=== PATIENT | female | born 1975 | race Native Hawaiian/Other Pacific Islander ===

== ENCOUNTER 2017-08-31 14:19 | Inpatient (IN) | payer OTHER ==
--- NOTE | 2017-08-31 14:59 | C.PDOC ---
History Of Present Illness 41 years old female with history of hypertension and D&C in May 2016 due to giving presents to the ED complaining of intermittent abdominal pain for 2 months. Patient reports experiencing sever pain to the left lower quadrant yesterday and today. She admits having flu-like symptoms 2 weeks ago where she had bodyache, cough, cold, loose stool and maximum fever of 101 degree for 10 days. Patient reports she has been in [facility] on July 10 for the same reason where an US was ordered and was found unremarkable. 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 Patient was also treated recently for UTI but symptoms persisted. She denies any nausea, chills, shortness of breath or chest pain. PMD: Sergio Payton Time Seen by Provider: 08/31/17 14:40 Chief Complaint (Nursing): Fever History Per: Patient History/Exam Limitations: no limitations Onset/Duration Of Symptoms: Intermittent Episodes, Worse Since (yesterday) Past Medical History Reviewed: Historical Data, Nursing Documentation, Vital Signs Vital Signs: Last Vital Signs Temp 98.5 F 08/31/17 14:30 Pulse 89 08/31/17 14:30 Resp 20 08/31/17 14:30 BP 119/80 08/31/17 14:30 Pulse Ox 98 08/31/17 16:34 - Medical History PMH: HTN Other Surgeries: D&C Family History: States: Unknown Family Hx - Social History Hx Alcohol Use: No Hx Substance Use: No - Immunization History Hx Tetanus Toxoid Vaccination: No Hx Influenza Vaccination: Yes Hx Pneumococcal Vaccination: No Review Of Systems Except As Marked, All Systems Reviewed And Found Negative. Constitutional: Negative for: Chills Cardiovascular: Negative for: Chest Pain Respiratory: Negative for: Shortness of Breath Gastrointestinal: Positive for: Abdominal Pain (Diffused) Physical Exam - Physical Exam Appears: Non-toxic, No Acute Distress Skin: Normal Color Oral Mucosa: Moist Tongue: Normal Appearing Throat: Normal Respiratory: Normal Breath Sounds, No Wheezing Gastrointestinal/Abdominal: Tenderness (diffused but mostly to the pelvic area) Neurological/Psych: Oriented x3 ED Course And Treatment - Laboratory Results Result Diagrams: 08/31/17 15:34 08/31/17 15:34 O2 Sat by Pulse Oximetry: 98 (RA) Pulse Ox Interpretation: Normal Medical Decision Making Medical Decision Making: Time: [address] Payton who recommends admission of patient. Recommends Inder or Karl Spoke with Dr. Loving, recommends service. Admited to Dr. Barajas. Pending call back. Spoke with Dr. Heidi flores, they states Dr. Barajas i has been informed of admission. . Disposition Discussed With Dr.: Sergio Payton Doctor Will See Patient In The: Hospital Counseled Patient/Family Regarding: Studies Performed - Disposition Disposition: HOSPITALIZED Disposition Time: 15:08 Condition: GUARDED - Clinical Impression Clinical Impression: Fever of unknown origin (FUO) - Scribe Statement The provider has reviewed the documentation as recorded by the Scribe (Yolette Shipman)
[2017-08-31 15:38] LABS: VENOUS BLOOD GAS BASE EXCESS -1.1 mmol/L (0.0-2.0); VENOUS BLOOD GAS PCO2 48 mmHg (40-60); VENOUS BLOOD GAS PO2 31 mm/Hg (30-55); VENOUS BLOOD PH 7.33 (7.32-7.43)
[2017-08-31 15:39] LABS: BASO % 0.6 % (0.0-2.0); EOS # 0.3 K/uL (0.0-0.7); EOS % 3.9 % (0.0-4.0); HEMOGLOBIN 13.5 g/dL (11.0-16.0); LYMPH # 2.4 K/uL (1.0-4.3); LYMPH % 31.1 % (20.0-40.0); MEAN CELL VOLUME 89.6 fL (81.0-99.0); MEAN CORPUSCULAR HGB CONC 34.6 g/dL (33.0-37.0); MEAN PLATELET VOLUME 9.2 fL (7.2-11.7); MONO # 0.4 K/uL (0.0-0.8); NEUT # 4.6 K/uL (1.8-7.0); NEUT % 59.4 % (50.0-75.0); NRBC % 0.1 % (0.0-2.0); RBC 4.37 Mil/uL (3.80-5.20); RED CELL DISTRIBUTION WIDTH 12.5 % (11.5-14.5); WHITE BLOOD COUNT 7.8 K/uL (4.8-10.8)
[2017-08-31 15:50] LABS: PROTHROMBIN TIME 11.4 SECONDS (9.7-12.2)
[2017-08-31 15:54] LABS: ALB/GLOB RATIO 1.2 (1.0-2.1); ALBUMIN 4.1 g/dL (3.5-5.0); ALT/SGPT 59 U/L (9-52); AST/SGOT 38 U/L (14-36); BLOOD UREA NITROGEN 15 mg/dL (7-17); CALCIUM 9.3 mg/dl (8.6-10.4); GFR AFRICAN-AMERICAN > 60; GFR NON-AFRICAN AMERICAN 55
[2017-08-31 17:18] LABS: SQUAMOUS EPITHIAL < 1 /hpf (0-5); URINE BACTERIA RARE (<OCC); URINE BILIRUBIN NEGATIVE (NEGATIVE); URINE BLOOD NEGATIVE (NEGATIVE); URINE CLARITY Clear (Clear); URINE COLOR Straw (YELLOW); URINE GLUCOSE (UA) NORMAL (Normal); URINE LEUKOCYTE ESTERASE NEG Leu/uL (Negative); URINE PROTEIN NEGATIVE (NEGATIVE); URINE UROBILINOGEN NORMAL mg/dL (0.2-1.0)
[2017-08-31 17:23] LABS: HCG,QUALITATIVE URINE NEGATIVE (NEGATIVE)
--- NOTE | 2017-08-31 18:20 | RAD ---
Chest x-ray two views History: Sepsis. Comparison: 07/15/2014 Findings: No focal infiltrate or effusion. Heart size within normal limits. Bibasilar breast and nipple shadows. Mild right hilar prominence. Degenerative changes in the spine. Impression: No focal infiltrate or effusion.
--- NOTE | 2017-08-31 20:39 | CP.PCM.CON ---
History of Present Illness - History of Present Illness History of Present Illness: INFECTIOUS DISEASE CONSULT; DICTATED; DICTATION NUMBER; [id number]. SEE REPORTS/ORDERS. Past Patient History - Past Social History Smoking Status: Never Smoked - CARDIAC Hx Hypertension: Yes - PSYCHIATRIC Hx Substance Use: No - SURGICAL HISTORY Hx Surgeries: Yes Hx Section: Yes Other/Comment: myomectomy - ANESTHESIA Hx Anesthesia: No Hx Anesthesia Reactions: No Meds Allergies/Adverse Reactions: Allergies Allergy/AdvReac Type Severity Reaction Status Date / Time No Known Allergies Allergy Unverified 08/31/17 14:32 - Medications Medications: Current Medications Imipenem/Cilastatin Sodium 500 (mg/ Sodium Chloride) 100 mls @ 100 mls/hr IVPB Q8H BUBBA PRN Reason: Protocol Last Admin: 08/31/17 18:54 Dose: 100 mls/hr Azithromycin (Zithromax 500mg In Ns Addvantage) 500 mg in 250 mls @ 167 mls/hr IVPB Q24H BUBBA PRN Reason: Protocol Results - Vital Signs Recent Vital Signs: Last Vital Signs Temp 98.7 F 08/31/17 17:41 Pulse 77 08/31/17 17:41 Resp 18 08/31/17 17:41 BP 107/75 08/31/17 17:41 Pulse Ox 98 08/31/17 17:41 - Labs Result Diagrams: 08/31/17 15:34 08/31/17 15:34 Labs: Laboratory Results - last 24 hr 08/31/17 08/31/17 08/31/17 15:34 15:34 15:34 WBC 7.8 RBC 4.37 Hgb 13.5 Hct 39.1 MCV 89.6 MCH 31.0 MCHC 34.6 RDW 12.5 Plt Count 217 MPV 9.2 Neut % (Auto) 59.4 Lymph % (Auto) 31.1 Allen % (Auto) 5.0 Eos % (Auto) 3.9 Baso % (Auto) 0.6 Neut # (Auto) 4.6 Lymph # (Auto) 2.4 Allen # (Auto) 0.4 Eos # (Auto) 0.3 Baso # (Auto) 0.0 PT 11.4 INR 1.0 APTT 33 pO2 VBG pH VBG pCO2 VBG HCO3 VBG Total CO2 VBG O2 Sat (Calc) VBG Base Excess VBG Potassium Glucose Lactate FiO2 Sodium 141 Potassium 4.3 Chloride 105 Carbon Dioxide 25 Anion Gap 14 BUN 15 Creatinine 1.1 Est GFR ( Amer) > 60 Est GFR (Non-Af Amer) 55 Random Glucose 115 H Calcium 9.3 Phosphorus 3.0 Magnesium 1.7 Total Bilirubin 0.4 AST 38 H ALT 59 H Alkaline Phosphatase 118 Total Protein 7.5 Albumin 4.1 Globulin 3.4 Albumin/Globulin Ratio 1.2 Venous Blood Potassium Urine Color Urine Clarity Urine pH Ur Specific [place] Urine Protein Urine Glucose (UA) Urine Ketones Urine Blood Urine Nitrate Urine Bilirubin Urine Urobilinogen Ur Leukocyte Esterase Ur Squamous Epith Cells Urine Bacteria Urine HCG, Qual 08/31/17 08/31/17 15:35 17:02 WBC RBC Hgb Hct MCV MCH MCHC RDW Plt Count MPV Neut % (Auto) Lymph % (Auto) Allen % (Auto) Eos % (Auto) Baso % (Auto) Neut # (Auto) Lymph # (Auto) Allen # (Auto) Eos # (Auto) Baso # (Auto) PT INR APTT pO2 31 VBG pH 7.33 VBG pCO2 48 VBG HCO3 22.9 VBG Total CO2 26.8 VBG O2 Sat (Calc) 60.8 VBG Base Excess -1.1 L VBG Potassium 4.0 Glucose 113 H Lactate 1.7 FiO2 21.0 Sodium 139.0 Potassium Chloride 107.0 Carbon Dioxide Anion Gap BUN Creatinine Est GFR ( Amer) Est GFR (Non-Af Amer) Random Glucose Calcium Phosphorus Magnesium Total Bilirubin AST ALT Alkaline Phosphatase Total Protein Albumin Globulin Albumin/Globulin Ratio Venous Blood Potassium 4.0 Urine Color Straw Urine Clarity Clear Urine pH 5.0 Ur Specific [place] 1.004 Urine Protein Negative Urine Glucose (UA) Normal Urine Ketones Negative Urine Blood Negative Urine Nitrate Negative Urine Bilirubin Negative Urine Urobilinogen Normal Ur Leukocyte Esterase Neg Ur Squamous Epith Cells < 1 Urine Bacteria Rare Urine HCG, Qual Negative
--- NOTE | 2017-08-31 22:11 | CP.PCM.HP ---
History of Present Illness - History of Present Illness History of Present Illness: COMPREHENSIVE HISTORY & PHYSICAL EXAM HPI Patient is admitted for fever of unknown origin. Patient for the last few days and weeks has been complaining of low-grade fever patient was partly evaluated outpatient with no any conclusive evidence. Patient also complaining of lower abdominal pain nausea and occasional vomiting. Patient also recently is complaining of cough with whitish expectoration and occasional wheezing. PAST HIST. PERSONAL HIST: Smoking. N Alcohol. N Allergy N Travel_- . FAMILY HIST : ROS : Constitutional:low-grade fever Eyes: Negative for redness, swelling, itching, discharge, vision changes, blurry vision, double vision, glaucoma, cataracts, Ears: Negative for hearing loss, ringing, , tinnitus, vertigo Nose: Negative for rhinorrhea, stuffiness, sniffing, itching, postnasal drip, discoloration, nasal congestion and epistaxis. Throat: Negative for throat clearing, sore throat, hoarseness, difficulty swallowing and difficulty speaking. Respiratory: Negative for wheezing, snoring at night, pleuritic chest pain and daytime somnolence. Cardiovascular: Negative for chest pain, palpitations, orthopnea, PND, Edema of legs, leg cramps, angina, claudication, , irregular heartbeat, Neurology: Negative for irritability, muscle weakness, numbness and tingling, seizures, tremors, migraines, slurred speech, syncope, memory loss, mood changes , recurrent headaches Gastrointestinal: Negative for difficulty swallowing, diarrhea, constipation, black stools, rectal bleeding, nausea, flatulence, reflux, poor appetite, changes in bowel habits, abdominal pain Genitourinary: Negative for frequent urination, hematuria, discharge, incontinence, urinary retention, frequent UTI, Psychiatric: Negative for depression, anxiety/panic, suicidal tendencies, Musculoskeletal: Negative for swollen joints, back pain, , neck pain, morning stiffness of joints, . Skin: Negative for rash, ulcers, itching, dry skin and pigmented lesions. P/E: Constitutional: Appears stated age and in no apparent distress. Head: Normocephalic. Ears: External ear canals patent without inflammation. Tympanic membranes intact with normal light reflex and landmark. Eyes: Pupils are central, bilaterally equal, symmetrical and reacts to light with normal movements and no icterus or pallor. Nose: External nares are patent. Mucosa is pink Mouth-Throat: Good general appearance and condition. No post-pharyngeal/oropharyngeal erythema and tonsillar hypertrophy. Good dental hygiene. Neck-Lymphatic: Neck is supple with normal ROM, no thyromegaly, lymph nodes or masses. JVD is normal with no carotid bruit. Lungs: Clear to percussion and auscultation with bilateral normal air entry. Cardiovascular: S1 and S2 are normal with no murmurs, gallops and rub. GI Exam: No hepatomegaly. Abdomen is soft and non-tender. No Organomegaly , masses or hernias are evident and bowel sounds are normal and active. Neurology: Higher function and all cranial nerves intact, with no gross motor or sensory deficit. Superficial and deep reflexes are normal with downwards planters. No cerebellar deficit with normal gait. Musculoskeletal: No tender spots with normal curvature of the spine with no swelling or restricted ROM of the small and large joints. Extremities: Homans sign absent. Intact pulses with no pitting edema, calf tenderness or skin color changes. Skin: No rash, eruptions or abnormal skin pigmentation LAB/RADIOLOGY: ASSESMENT : Fever of unknown origin etiology to be determined Present on Admission - Present on Admission Any Indicators Present on Admission: No Past Patient History - Past Social History Smoking Status: Never Smoked - CARDIAC Hx Hypertension: Yes - PSYCHIATRIC Hx Substance Use: No - SURGICAL HISTORY Hx Surgeries: Yes Hx Section: Yes Other/Comment: myomectomy - ANESTHESIA Hx Anesthesia: No Hx Anesthesia Reactions: No Meds Allergies/Adverse Reactions: Allergies Allergy/AdvReac Type Severity Reaction Status Date / Time No Known Allergies Allergy Unverified 08/31/17 14:32 Results - Vital Signs Recent Vital Signs: Last Vital Signs Temp 98.5 F 08/31/17 21:57 Pulse 85 08/31/17 21:57 Resp 20 08/31/17 21:57 BP 111/77 08/31/17 21:57 Pulse Ox 98 08/31/17 21:57 - Labs Result Diagrams: 08/31/17 15:34 08/31/17 15:34 Labs: Laboratory Results - last 24 hr 08/31/17 08/31/17 08/31/17 15:34 15:34 15:34 WBC 7.8 RBC 4.37 Hgb 13.5 Hct 39.1 MCV 89.6 MCH 31.0 MCHC 34.6 RDW 12.5 Plt Count 217 MPV 9.2 Neut % (Auto) 59.4 Lymph % (Auto) 31.1 [place] % (Auto) 5.0 Eos % (Auto) 3.9 Baso % (Auto) 0.6 Neut # (Auto) 4.6 Lymph # (Auto) 2.4 [place] # (Auto) 0.4 Eos # (Auto) 0.3 Baso # (Auto) 0.0 PT 11.4 INR 1.0 APTT 33 pO2 VBG pH VBG pCO2 VBG HCO3 VBG Total CO2 VBG O2 Sat (Calc) VBG Base Excess VBG Potassium Glucose Lactate FiO2 Sodium 141 Potassium 4.3 Chloride 105 Carbon Dioxide 25 Anion Gap 14 BUN 15 Creatinine 1.1 Est GFR ( Amer) > 60 Est GFR (Non-Af Amer) 55 Random Glucose 115 H Calcium 9.3 Phosphorus 3.0 Magnesium 1.7 Total Bilirubin 0.4 AST 38 H ALT 59 H Alkaline Phosphatase 118 Total Protein 7.5 Albumin 4.1 Globulin 3.4 Albumin/Globulin Ratio 1.2 Venous Blood Potassium Urine Color Urine Clarity Urine pH Ur Specific [place] Urine Protein Urine Glucose (UA) Urine Ketones Urine Blood Urine Nitrate Urine Bilirubin Urine Urobilinogen Ur Leukocyte Esterase Ur Squamous Epith Cells Urine Bacteria Urine HCG, Qual 08/31/17 08/31/17 15:35 17:02 WBC RBC Hgb Hct MCV MCH MCHC RDW Plt Count MPV Neut % (Auto) Lymph % (Auto) [place] % (Auto) Eos % (Auto) Baso % (Auto) Neut # (Auto) Lymph # (Auto) [place] # (Auto) Eos # (Auto) Baso # (Auto) PT INR APTT pO2 31 VBG pH 7.33 VBG pCO2 48 VBG HCO3 22.9 VBG Total CO2 26.8 VBG O2 Sat (Calc) 60.8 VBG Base Excess -1.1 L VBG Potassium 4.0 Glucose 113 H Lactate 1.7 FiO2 21.0 Sodium 139.0 Potassium Chloride 107.0 Carbon Dioxide Anion Gap BUN Creatinine Est GFR ( Amer) Est GFR (Non-Af Amer) Random Glucose Calcium Phosphorus Magnesium Total Bilirubin AST ALT Alkaline Phosphatase Total Protein Albumin Globulin Albumin/Globulin Ratio Venous Blood Potassium 4.0 Urine Color Straw Urine Clarity Clear Urine pH 5.0 Ur Specific [place] 1.004 Urine Protein Negative Urine Glucose (UA) Normal Urine Ketones Negative Urine Blood Negative Urine Nitrate Negative Urine Bilirubin Negative Urine Urobilinogen Normal Ur Leukocyte Esterase Neg Ur Squamous Epith Cells < 1 Urine Bacteria Rare Urine HCG, Qual Negative
[2017-08-31] MEDS: Azithromycin 500mg/250ML NS 500 MG/250 ML BAG IVPB SCH (23:34)
--- NOTE | 2017-09-01 07:14 | CON ---
DATE: INFECTIOUS DISEASE CONSULTATION Requested by Dr. Barajas. Dictation done by Dr. Sergio Payton. REASON FOR CONSULTATION: Fever of unknown origin. HISTORY OF PRESENT ILLNESS: The patient a 41-year-old female with past medical history of hypertension, on labetalol 100 mg by mouth twice a day, who is admitted via the emergency room because of not feeling well, and fevers off and on for the past two months. The patient has been complaining of some abdominal pain and recurrent UTIs for which she was given multiple antibiotics. She states she has had three episodes of UTI. She even went to [facility] and they did an ultrasound of the abdomen and treated her for UTI. The abdominal ultrasound was unremarkable. The patient continues to have lower abdominal pain off and on for the past 2 months and also presently complains of loose BMs. The patient recently has also started with a cough which she states has been there for the past few days, but continues to have fever for the past 10 days up to 101 as noted by her during these past few days. The patient was recently treated for UTI by the private MD and given a course of nitrofurantoin for 5 days and two doses of intramuscular Rocephin, but she still has persistent fevers. The patient gives a history of D and C recently in 05/2017 for G2 stillbirth. 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 The patient has history of positive PPD, treated in [place] for 9 months with INH and pyridoxine. The patient denies night sweats, but states her appetite is poor. 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 PAST MEDICAL HISTORY: As above, hypertension, history of preeclampsia in her first delivery, which ended up in a miscarriage and 3 other miscarriages. SURGICAL HISTORY: History of C section in 2012. SOCIAL HISTORY: She denies smoking or alcohol use. She consumes caffeine. She is a nonsmoker. The patient is and presently works as a RN. FAMILY HISTORY: Significant for father and mother both having high blood pressure. Mother has also reported with diabetes and high blood pressure. Siblings are well. EXPOSURE HISTORY: Denies any exposure to allergens or blood transfusion. IMMUNIZATIONS: She is up-to-date on influenza vaccination. Denies tetanus toxoid or pneumococcal vaccine. TRAVEL: No recent travel or exposure to sick contacts. MEDICATIONS: Presently not on any medications except labetalol for hypertension. PHYSICAL EXAMINATION: GENERAL: The patient is awake, alert, not in any acute distress. VITAL SIGNS: Temperature 98.5, blood pressure 119/80, respirations 20, pulse of 89, pulse ox was 98%. HEENT: Pupils equal, reactive to light and accommodation. Extraocular movements full. Fundus negative. Sclerae nonicteric. Conjunctivae normal. JVP not elevated. NECK: Appears to be supple. No lymphadenopathy appreciated. LUNGS: Few basilar rhonchi. CARDIOVASCULAR SYSTEM: S1, S2. No murmur or gallop. ABDOMEN: Soft, but exquisite tenderness noted in the left lower quadrant and suprapubic. Bowel sounds are present. No organomegaly appreciated. EXTREMITIES: No cyanosis, clubbing and edema. GAS DISPATCHER: No gross deficits. Moves all extremities. Reflexes are equal and symmetrical. Cranial nerves II through XII are intact. Babinski's are downgoing. LABORATORY DATA: WBC 7.8, H and H of 13.5 and 39.1, platelets 217. Sodium 141, blood sugar 115, creatinine 1.1, BUN of 15. Liver function test; bilirubin 0.4, AST 38, ALT 59, alkaline phosphatase 118. Serum lactate was 1.7. ABGs; pH of 7.33, PCO2 of 48, PO2 of 31, oxygen saturation 60.8, low. Urinalysis is clear, pH 5, urine leukocyte negative. Urine bacteria rare. Urine hCG qualitative level is negative. Chest x-ray; no acute infiltrate. IMPRESSION: 1. Fever of unknown origin, etiology not clear, rule out tuberculosis, history of latent tuberculosis. 2. Abdominal pain, rule out diverticulitis versus malignancy versus pelvic inflammatory disease. 3. Status post recent dilation and curettage in 05/2017. 4. History of miscarriages and stillbirth. 5. History of recurrent urinary tract infections. PLAN: Suggest overton cultures, TB workup including QuantiFERON Gold TB test. Sputum for AFB x3. We will also sent for diarrhea workup including stool for C. difficile toxin, occult blood, stool for Salmonella, Shigella and Campylobacter. Stools for ova and parasites. CT chest, abdomen and pelvis with p.o. and IV contrast. Rule out occult TB or granulomatous lymphadenopathy. We will start patient empirically after appropriate cultures with IV Primaxin 500 mg every 8 hourly and IV Zithromax 500 IV piggyback daily. Follow up cultures to adjust antibiotics. We will follow along with you. Thank you very much for allowing me to participate in the care of your patient. Sergio Payton MD
[2017-09-01 09:24] LABS: MYCOPLASMA PNEUMONIAE IGM NEGATIVE (NEGATIVE)
[2017-09-01 09:25] LABS: LEGIONELLA AG URINE NEGATIVE (NEGATIVE)
[2017-09-01 09:31] LABS: HEPATITIS B SURFACE AG Negative (NEGATIVE)
[2017-09-01 09:37] LABS: HEPATITIS A IGM NEGATIVE (NEGATIVE); HEPATITIS B CORE AB NEGATIVE (NEGATIVE)
[2017-09-01 09:48] LABS: HEPATITIS C ANTIBODY NEGATIVE (NEGATIVE)
[2017-09-01] MEDS ORDERED: Iodixanol 320 MG/ML 100 ML BOTTLE IV ONE (10:38)
--- NOTE | 2017-09-01 12:27 | CT ---
PROCEDURE: CT Chest, Abdomen and Pelvis with intravenous contrast HISTORY: FUO COMPARISON: None. TECHNIQUE: IV dose administered: 100 mL Visipaque 3 1 Radiation dose: Total exam DLP = 462.29 mGy-cm. This CT exam was performed using one or more of the following dose reduction techniques: Automated exposure control, adjustment of the mA and/or kV according to patient size, and/or use of iterative reconstruction technique. FINDINGS: CT CHEST WITH CONTRAST: LUNGS: Clear. No nodule, mass or consolidation. MEDIASTINUM: Unremarkable. Normal caliber aorta and pulmonary arterial trunk. No aortic dissection. Normal size heart. LYMPH NODES: Unremarkable. PLEURA: Unremarkable. No pneumothorax. No pleural fluid. BONES: Unremarkable. OTHER FINDINGS: None. CT ABDOMEN AND PELVIS: LIVER: Unremarkable. No gross lesion or ductal dilatation. GALLBLADDER AND BILE DUCTS: Unremarkable. PANCREAS: Unremarkable. No gross lesion or ductal dilatation. SPLEEN: Unremarkable. ADRENALS: Unremarkable. No mass. KIDNEYS AND URETERS: Lobulated contour of right kidney. . Mild atrophy of right kidney. Uncertain significance. Rule out reflux nephropathy. No renal mass, calculus or hydronephrosis. VASCULATURE: Unremarkable. No aortic aneurysm. BOWEL: Unremarkable. No obstruction. No gross mural thickening. APPENDIX: Not identified. No secondary findings. PERITONEUM: Unremarkable. No free fluid. No free air. LYMPH NODES: Unremarkable. No enlarged lymph nodes. BLADDER: Poorly distended REPRODUCTIVE: Normal uterus. Irregular peripherally enhancing left ovarian cyst, 1.7 cm. Probable ruptured or involuting left ovarian follicle. There is fullness/prominence of the cervix. Further evaluation to rule out cervical neoplasm is advised. Recommend correlation with transvaginal ultrasound examination. BONES: No acute fracture. OTHER FINDINGS: None. IMPRESSION: No acute inflammatory process identified. Fullness/ prominence of the cervix is noted. Nonspecific findings on CT. Correlate with transvaginal pelvic ultrasound examination. Correlate with Pap smear. Mild cortical atrophy and lobulated contour of right kidney, uncertain significance. Rule out reflux nephropathy. Probable ruptured or involuting left ovarian follicle. Otherwise unremarkable examination.
--- NOTE | 2017-09-01 13:33 | CP.PCM.PN ---
Subjective - Date & Time of Evaluation Date of Evaluation: 09/01/17 Time of Evaluation: 13:33 - Subjective Subjective: CHIEF COMPLAINTS TODAY : c/o lower abdominal pain. Diarrhea has subsided. Temperature is in the range of 99F. ROS. HEENT : N. Resp : +ve cough, no wheezing ,pleuritic CP ,or hemoptysis Cardio : No anginal CP, PND, orthopnea, palpitation GI : No, n/v +ve ,diarrhea , no GI bleeding . 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 Musculoskel : No joint swelling , Derm : No rash Psych : Normal affect. Ext : No swelling ,calf pain PE. Pt. is alert awake in no distress. V.S As noted in the chart Head ,ear nose,throat and eyes : Normal. Neck : Supple with normal carotids. Lungs: FA[employer] ENTRY Heart : S1 & S2 normal with S4. No murmur. Abd : SOFT, TENDERNESS LLQ +VE ,normal bowel sounds. Neuro : Moves all ext. with no localized deficit. Ext : No edema with intact pulses.Non tender calves Derm : No rashes or decubitus ulcer. LABS/RADIOLOGY: ESR 20, U/A -VE HEPT A,B.C SCREEN -VE Chest x-ray NAD. CT of the CHEST/ ABDOMEN /PELVIS -09/01/17 fULLNESS AND PROMINENCE OF THE CERVIX/ MILD CORTICAL ATROPHY RIGHT KIDNEY ? REFLUX Objective - Vital Signs/Intake and Output Vital Signs (last 24 hours): Temp Pulse Resp BP Pulse Ox 97.9 F 81 20 103/68 95 09/01/17 07:25 09/01/17 07:25 09/01/17 07:25 09/01/17 07:25 09/01/17 07:25 Intake and Output: 09/01/17 09/01/17 06:59 18:59 Intake Total 490 Balance 490 - Medications Medications: Current Medications Imipenem/Cilastatin Sodium 500 (mg/ Sodium Chloride) 100 mls @ 100 mls/hr IVPB Q8H BUBBA PRN Reason: Protocol Last Admin: 09/01/17 10:05 Dose: 100 mls/hr Azithromycin (Zithromax 500mg In Ns Addvantage) 500 mg in 250 mls @ 167 mls/hr IVPB Q24H BUBBA PRN Reason: Protocol Last Admin: 08/31/17 23:34 Dose: 167 mls/hr Labetalol HCl (Trandate) 100 mg PO BID BUBBA Last Admin: 09/01/17 10:04 Dose: Not Given - Labs Labs: 08/31/17 15:34 08/31/17 15:34 PT 11.4 SECONDS (9.7-12.2) 08/31/17 15:34 INR 1.0 08/31/17 15:34 APTT 33 SECONDS (21-34) 08/31/17 15:34 Assessment and Plan (1) Fever of unknown origin (FUO) Assessment & Plan: W/U IN PROGRESS. TB W/U IN PROGRESS.(PULMONARY VS EXTRA-PULMONARY ) CT -CHEST- NO MASSES/NO NODULES CT ABDOMEN /PELVISW IV CONTRAST-FULLNESS/PROMINENT CERVIX MILD CORTICAL ATROPHY RIGHT KIDNEY ? REFLUX QUANTIFERON GOLD TB TEST PENDING. CONTINUE IV PRIMAXIN 500MG IV EVERY 8 HOURLY.. 08/31/17 CONTINUE ZITHROMAX iv 500 MG ONCE A DAY DAILY 08/31/17 WILL GET TAX MANAGER CONSULT R/O PID VS ABNORMAL CX Status: Acute (2) Cough Assessment & Plan: SPUTUM -P. Status: Acute (3) Abdominal pain Assessment & Plan: DIARRHOEA W/U -P. PT C/O LLQ PAIN. WILLGET TAX MANAGER TO R/O PID. HX OF RECENT D&C IN MAY 2017 FOR STILLBIRTH IN UTERO Status: Acute (4) History of recurrent UTIs Assessment & Plan: U/A - URINE FOR AFB SMEAR /AND CULTURE X3 DAYS (MORNING SPECIMEN ) 09/01/17 Status: Acute
--- NOTE | 2017-09-01 13:47 | CP.PCM.PN ---
Subjective - Date & Time of Evaluation Date of Evaluation: 09/01/17 Time of Evaluation: 13:45 - Subjective Subjective: CHIEF COMPLAINTS TODAY : Patient is still having lower abdominal pain. Diarrhea has subsided. Temperature is in the range of 99F. ROS. HEENT : N. Resp : No cough, wheezing ,pleuritic CP ,or hemoptysis Cardio : No anginal CP, PND, orthopnea, palpitation GI : No, n/v ,diarrhea or GI bleeding . WELFARE DIRECTOR : No headache, vertigo, focal deficit. Musculoskel : No joint swelling , Derm : No rash Psych : Normal affect. Ext : No swelling ,calf pain PE. Pt. is alert awake in no distress. V.S As noted in the chart Head ,ear nose,throat and eyes : Normal. Neck : Supple with normal carotids. Lungs: Clear air entry. Heart : S1 & S2 normal with S4. No murmur. Abd : Soft non tender with normal bowel sounds. Neuro : Moves all ext. with no localized deficit. Ext : No edema with intact pulses.Non tender calves Derm : No rashes or decubitus ulcer. LABS/RADIOLOGY: Chest x-ray and a CT of the abdomen does not show any acute pathology ASSESSMENT/PLAN : Will need to rule out TB awaiting sputum for AFB 3. Objective - Vital Signs/Intake and Output Vital Signs (last 24 hours): Temp Pulse Resp BP Pulse Ox 97.9 F 81 20 103/68 95 09/01/17 07:25 09/01/17 07:25 09/01/17 07:25 09/01/17 07:25 09/01/17 07:25 Intake and Output: 09/01/17 09/01/17 11:59 23:59 Intake Total 370 Balance 370 - Medications Medications: Current Medications Imipenem/Cilastatin Sodium 500 (mg/ Sodium Chloride) 100 mls @ 100 mls/hr IVPB Q8H BUBBA PRN Reason: Protocol Last Admin: 09/01/17 10:05 Dose: 100 mls/hr Azithromycin (Zithromax 500mg In Ns Addvantage) 500 mg in 250 mls @ 167 mls/hr IVPB Q24H BUBBA PRN Reason: Protocol Last Admin: 08/31/17 23:34 Dose: 167 mls/hr Labetalol HCl (Trandate) 100 mg PO BID BUBBA Last Admin: 09/01/17 10:04 Dose: Not Given - Labs Labs: 08/31/17 15:34 08/31/17 15:34 PT 11.4 SECONDS (9.7-12.2) 08/31/17 15:34 INR 1.0 08/31/17 15:34 APTT 33 SECONDS (21-34) 08/31/17 15:34
--- NOTE | 2017-09-01 18:21 | US ---
HISTORY: Evaluate fullness of cervix on CT scan COMPARISON: None available. TECHNIQUE: Transabdominal and transvaginal FINDINGS: UTERUS: Measures 9.0 x 4.0 x 4.5 cm. Normal in size and appearance. Anterior sub serosal fibroid, 1.7 x 1.5 x 1.8 cm. ENDOMETRIUM: Measures 8 mm in diameter. Unremarkable. CERVIX: Multiple complex nabothian cysts identified, largest 11 mm. No cervical mass identified. RIGHT OVARY: Measures 2.8 x 1.5 x 2.3 cm. No solid mass. Normal flow. LEFT OVARY: Measures 3.2 x 2.4 x 2.5 cm. No solid mass. Normal flow. Corpus luteum noted, 1.8 cm. FREE FLUID: No significant free fluid noted. OTHER FINDINGS: None. IMPRESSION: Multiple cervical nabothian cyst with internal echoes. No cervical solid mass identified. Small uterine fibroid. No additional abnormality.
--- NOTE | 2017-09-01 22:03 | CP.PCM.CON ---
History of Present Illness - History of Present Illness History of Present Illness: Asked by Dr. Cinda Payton to see patient: c/o lower abdominal pain; CT with prominent cervix. Patient seen on two occasions today 1500 hours and 2030 hours: total time 60 minutes Patient received in isolation room 555 41 y.o. , LMP 08/19/17 x 6 days, admitted for evaluation of fever x approximately 2 months; and new onset cough x a few days. Currently, patient reports left lower quadrant pain has subsided. Denies fever or chills; cough still present, occasionally. HPI: onset of LLQ pain 08/31/17 lasted for a few hours, pain scale 8/10. No precipitating factors; patient took no pain meds as she had been on so much medications in the past 2-3 months. Pain described as a pressure sensation; no radiation or other associated symptoms. This is not the first time with this pain: first onset several months after myomectomy in 2011. Has had bouts of this pain since; it can subside with or without medications. 06/2017, approximately 1 month after D&C for termination of due to abnormally developing fetus, patient was seen by a private medical provider for the same LLQ pain. Ultrasound was performed to evaluate for possible retained products of conception. This imaging study was negative for same. She was treated with an antibiotic for presumptive UTI. Pain resolved. Beginning 08/2017 , due to onset of similar lower abdominal pain, sought medical attention. Seen by a human projectile provider who again performed pelvic ultrasound which was negative. Patient again treated for UTI with a different antibiotic. 07/2017, had a bout of the LLQ pain which subsided with rest and hydration. Patient with h/o BCG. 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 Patient denies any recent travel. 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 P Ob: 1) 2012, C/S, 28 weeks, pre-eclampsia, male, 450 grams; after a few hours; [place]. 2) 2014, 12 weeks, no FHR; medical ; no D&C. 3) 2016 , approx 12 weeks, no FHR; D&C. NB: patient was started on heparin and ASA at 7 weeks gestation for presumptive coagulation disorder. 4) 05/2017, TOP at approx 12 weeks; no FHR; incidental finding of Trisomy 18. P SUPERINTENDENT OPERATING: 12 x monthly x 6-7 days. No h/o abnormal Pap test; last Pap approx 2-3 years ago. first diagnosed with leiomyomata 2011; underwent abdominal myomectomy (laparoscopy was converted to an open case - originally for infertility evaluation). Denies h/o STIs. Patient states was told to have only one functioning fallopian tube. PMH: HTN - after 2012. Denies thyroid disorder, DM PSH: 2011, abdominal myomectomy; 2012, section; D&C x 2 NKDA Meds: labetalol 100 mg p.o. BID - takes whenever BP is elevated. Soc Hx: denies tobacco, illicit drug or EtOH use. x 10 years. Fam Hx: MOther alive 65 y.o. - HTN, DM. Father alive 70 y.o. 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 Alcohol: None Drugs: Denies Home Situation {Lives}: With Family - CARDIAC Hx Cardiac Disorders: No Hx Hypertension: Yes - PULMONARY Hx Respiratory Disorders: No - NEUROLOGICAL Hx Neurological Disorder: No - HEENT Hx HEENT Problems: No - RENAL Hx Chronic Kidney Disease: No - ENDOCRINE/METABOLIC Hx Endocrine Disorders: No - HEMATOLOGICAL/ONCOLOGICAL Hx Blood Disorders: No - INTEGUMENTARY Hx Dermatological Problems: No - MUSCULOSKELETAL/RHEUMATOLOGICAL Hx Falls: No - GASTROINTESTINAL Hx Gastrointestinal Disorders: No - GENITOURINARY/GYNECOLOGICAL Hx Genitourinary Disorders: No Other/Comment: H/O leiomyomata : 4 Para: 1 (extreme prematurity) Termination of : 3 - PSYCHIATRIC Hx Psychophysiologic Disorder: No Hx Substance Use: No - SURGICAL HISTORY Hx Surgeries: Yes Hx Section: Yes (2012) Hx Dilation and Curettage: Yes (2015, 2017) Other/Comment: myomectomy - ANESTHESIA Hx Anesthesia: Yes Hx Anesthesia Reactions: No Meds Allergies/Adverse Reactions: Allergies Allergy/AdvReac Type Severity Reaction Status Date / Time No Known Allergies Allergy Unverified 08/31/17 14:32 - Medications Medications: Current Medications Imipenem/Cilastatin Sodium 500 (mg/ Sodium Chloride) 100 mls @ 100 mls/hr IVPB Q8H BUBBA PRN Reason: Protocol Last Admin: 09/01/17 19:47 Dose: 100 mls/hr Azithromycin (Zithromax 500mg In Ns Addvantage) 500 mg in 250 mls @ 167 mls/hr IVPB Q24H BUBBA PRN Reason: Protocol Last Admin: 08/31/17 23:34 Dose: 167 mls/hr Labetalol HCl (Trandate) 100 mg PO BID BUBBA Last Admin: 09/01/17 19:54 Dose: Not Given Physical Exam - Constitutional Appears: Well, No Acute Distress - Head Exam Head Exam: NORMAL INSPECTION, NORMOCEPHALIC - Eye Exam Eye Exam: Normal appearance Additional comments: Wears glasses - Neck Exam Neck exam: Positive for: Full Rom - Respiratory Exam Respiratory Exam: NORMAL BREATHING PATTERN - Cardiovascular Exam Cardiovascular Exam: REGULAR RHYTHM - GI/Abdominal Exam GI & Abdominal Exam: Normal Bowel Sounds, Soft Additional comments: Minimal LLQ tenderness to deep palpation. No rebound tenderness, no guarding - Exam External exam: NORMAL EXTERNAL EXAM Bimanual exam: NORMAL BIMANUAL EXAM Additional comments: No cervical motion tenderness, no uterine or adnexal tenderness; no adnexal fullness. Uterus approx 12 weeks, firm, mobile, non tender. - Extremities Exam Extremities exam: Positive for: full ROM, normal inspection - Neurological Exam Neurological exam: Alert, Oriented x3 - Psychiatric Exam Psychiatric exam: Normal Affect, Normal Mood - Skin Skin Exam: Dry, Intact, Normal Color, Warm Results - Vital Signs Recent Vital Signs: Last Vital Signs Temp 98.2 F 09/01/17 16:15 Pulse 81 09/01/17 16:15 Resp 20 09/01/17 16:15 BP 117/85 09/01/17 19:00 Pulse Ox 98 09/01/17 16:15 - Labs Result Diagrams: 08/31/17 15:34 08/31/17 15:34 Labs: Laboratory Results - last 24 hr 08/31/17 08/31/17 09/01/17 07:46 14:55 08:35 ESR 20 C-React Prot High Sens Stool Occult Blood Stool Leukocytes, Qual Negative Hepatitis A IgM Ab Hep Bs Antigen Hep B Core IgM Ab Hepatitis C Antibody Ur L.pneumophila Ag Negative Mycoplasma pneumon IgM Negative 09/01/17 09/01/17 09/01/17 08:35 08:35 08:35 ESR C-React Prot High Sens 1.18 Stool Occult Blood Stool Leukocytes, Qual Hepatitis A IgM Ab Negative Hep Bs Antigen Negative Hep B Core IgM Ab Negative Hepatitis C Antibody Negative Negative Ur L.pneumophila Ag Mycoplasma pneumon IgM 09/01/17 14:55 ESR C-React Prot High Sens Stool Occult Blood Negative Stool Leukocytes, Qual Hepatitis A IgM Ab Hep Bs Antigen Hep B Core IgM Ab Hepatitis C Antibody Ur L.pneumophila Ag Mycoplasma pneumon IgM Assessment & Plan - Assessment and Plan (Free Text) Assessment: TV ultrasound 09/01/17: uterus 9 x 4 x 4.5 cm with a 1.7 x 1.5 x 1.8 cm subserosal myoma. Endometrium 8mm. Left ovary: 3.2 x 2.4 x 2.5 cm with a 1.8cm corpus luteal cyst. Right ovary 2.8 x 1.5 x 2.3 cm. Cervix = multiple complex Nabothian cysts, largest 11mm; no cervical mass identified. No significant free fluid. Blood cultures negative x 24 hours Repeat sputum culture(s) submitted 41 y.o. , admitted for evaluation of fever of unknown origin. Patient' s LLQ pain is most likely due to pelvic adhesions. No acute human projectile intervention indicated at this time. Patient with poor OB history. Detailed evaluation can include rheumatology and pre-conception genetics counseling. Patient advised, upon discharge, to establish a relationship with an miter cutter provider. Re: - patient will be best managed by a specialist in Maternal Medicine. Patient expressed an understanding and agrees. Patient is clinically stable. Plan: 1) Medical care as per primary Medicine team(s) Thank you for the pleasure of this consultation - Date & Time Date: 09/01/17 Time: 22:32
[2017-09-01] MEDS: Azithromycin 500mg/250ML NS 500 MG/250 ML BAG IVPB SCH (22:19)
--- NOTE | 2017-09-02 02:56 | CARD ---
APPROVED REPORT EKG Measurement Heart [id number] <Conclusion> Normal sinus rhythm Low voltage QRS Borderline ECG
[2017-09-02 08:50] LABS: BASO # 0.1 K/uL (0.0-0.2); BASO % 0.5 % (0.0-2.0); EOS # 0.2 K/uL (0.0-0.7); EOS % 2.3 % (0.0-4.0); HEMOGLOBIN 12.6 g/dL (11.0-16.0); LYMPH # 2.6 K/uL (1.0-4.3); LYMPH % 26.4 % (20.0-40.0); MEAN CELL VOLUME 88.8 fL (81.0-99.0); MEAN CORPUSCULAR HEMOGLOBIN 31.1 pg (27.0-31.0); MEAN PLATELET VOLUME 9.2 fL (7.2-11.7); MONO # 0.5 K/uL (0.0-0.8); MONO % 4.8 % (0.0-10.0); NEUT # 6.5 K/uL (1.8-7.0); RBC 4.05 Mil/uL (3.80-5.20); RED CELL DISTRIBUTION WIDTH 12.4 % (11.5-14.5); WHITE BLOOD COUNT 9.9 K/uL (4.8-10.8)
[2017-09-02 09:07] LABS: ALB/GLOB RATIO 1.3 (1.0-2.1); ALT/SGPT 49 U/L (9-52); AST/SGOT 35 U/L (14-36); BLOOD UREA NITROGEN 16 mg/dL (7-17); CALCIUM 8.7 mg/dl (8.6-10.4); GFR AFRICAN-AMERICAN > 60; GFR NON-AFRICAN AMERICAN > 60
--- NOTE | 2017-09-02 14:36 | CP.PCM.PN ---
Subjective - Date & Time of Evaluation Date of Evaluation: 09/02/17 Time of Evaluation: 14:34 - Subjective Subjective: CHIEF COMPLAINTS TODAY : Patients lower pelvic pain is subsided. CUTTER BRAKE LINING evaluation noted ROS. HEENT : N. Resp : No cough, wheezing ,pleuritic CP ,or hemoptysis Cardio : No anginal CP, PND, orthopnea, palpitation GI : No abd.pain, n/v ,diarrhea or GI bleeding . 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 Musculoskel : No joint swelling , Derm : No rash Psych : Normal affect. Ext : No swelling ,calf pain PE. Pt. is alert awake in no distress. V.S As noted in the chart Head ,ear nose,throat and eyes : Normal. Neck : Supple with normal carotids. Lungs: Clear air entry. Heart : S1 & S2 normal with S4. No murmur. Abd : Soft tender with normal bowel sounds. Neuro : Moves all ext. with no localized deficit. Ext : No edema with intact pulses.Non tender calves Derm : No rashes or decubitus ulcer. LABS/RADIOLOGY: Blood cultures urine cultures pending ASSESSMENT/PLAN : Patient has no further temperature is hospital Cultures are pending Continue IV antibiotic as infectious disease. Objective - Vital Signs/Intake and Output Vital Signs (last 24 hours): Temp Pulse Resp BP Pulse Ox 97.9 F 88 18 125/87 99 09/02/17 07:20 09/02/17 07:20 09/02/17 07:20 09/02/17 09:24 09/02/17 07:20 - Medications Medications: Current Medications Imipenem/Cilastatin Sodium 500 (mg/ Sodium Chloride) 100 mls @ 100 mls/hr IVPB Q8H BUBBA PRN Reason: Protocol Last Admin: 09/02/17 10:02 Dose: 100 mls/hr Azithromycin (Zithromax 500mg In Ns Addvantage) 500 mg in 250 mls @ 167 mls/hr IVPB Q24H BUBBA PRN Reason: Protocol Last Admin: 09/01/17 22:19 Dose: 167 mls/hr Labetalol HCl (Trandate) 100 mg PO BID BUBBA Last Admin: 09/02/17 09:25 Dose: 100 mg - Labs Labs: 09/02/17 08:38 09/02/17 08:38 PT 11.4 SECONDS (9.7-12.2) 08/31/17 15:34 INR 1.0 08/31/17 15:34 APTT 33 SECONDS (21-34) 08/31/17 15:34
--- NOTE | 2017-09-02 19:51 | CP.PCM.PN ---
Subjective - Date & Time of Evaluation Date of Evaluation: 09/02/17 Time of Evaluation: 19:51 - Subjective Subjective: CHIEF COMPLAINTS TODAY : AFEBRILE lower abdominal pain IMPROVING Diarrhea has subsided. ROS. HEENT : N. Resp : NO cough, no wheezing ,pleuritic CP ,or hemoptysis Cardio : No anginal CP, PND, orthopnea, palpitation GI : No, n/v +ve ,diarrhea , no GI bleeding . 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 Musculoskel : No joint swelling , Derm : No rash Psych : Normal affect. Ext : No swelling ,calf pain PE. Pt. is alert awake in no distress. V.S As noted in the chart Head ,ear nose,throat and eyes : Normal. Neck : Supple with normal carotids. Lungs: FAIR AIR ENTRY Heart : S1 & S2 normal with S4. No murmur. Abd : SOFT, MILD TENDERNESS LLQ +VE ,normal bowel sounds. Neuro : Moves all ext. with no localized deficit. Ext : No edema with intact pulses.Non tender calves Derm : No rashes or decubitus ulcer. LABS/RADIOLOGY: ESR 20, U/A -VE HEPT A,B.C SCREEN -VE Chest x-ray NAD. CT of the CHEST/ ABDOMEN /PELVIS -09/01/17 FULLNESS AND PROMINENCE OF THE CERVIX/ MILD CORTICAL ATROPHY RIGHT KIDNEY ? REFLUX Objective - Vital Signs/Intake and Output Vital Signs (last 24 hours): Temp Pulse Resp BP Pulse Ox 97.4 F L 88 20 103/70 96 09/02/17 15:52 09/02/17 15:52 09/02/17 15:52 09/02/17 15:52 09/02/17 15:52 - Medications Medications: Current Medications Imipenem/Cilastatin Sodium 500 (mg/ Sodium Chloride) 100 mls @ 100 mls/hr IVPB Q8H BUBBA PRN Reason: Protocol Last Admin: 09/02/17 10:02 Dose: 100 mls/hr Azithromycin (Zithromax 500mg In Ns Addvantage) 500 mg in 250 mls @ 167 mls/hr IVPB Q24H BUBBA PRN Reason: Protocol Last Admin: 09/01/17 22:19 Dose: 167 mls/hr Labetalol HCl (Trandate) 100 mg PO BID BUBBA Last Admin: 09/02/17 18:59 Dose: Not Given - Labs Labs: 09/02/17 08:38 09/02/17 08:38 PT 11.4 SECONDS (9.7-12.2) 08/31/17 15:34 INR 1.0 08/31/17 15:34 APTT 33 SECONDS (21-34) 08/31/17 15:34 Assessment and Plan (1) Fever of unknown origin (FUO) Assessment & Plan: SEEN BY BEARING GRINDER DR SEYMOUR AND APPRECIATED. PER RECOMENDATIONS W/U IN PROGRESS. TB W/U IN PROGRESS.(PULMONARY VS EXTRA-PULMONARY ) CT -CHEST- NO MASSES/NO NODULES CT ABDOMEN /PELVISW IV CONTRAST-FULLNESS/PROMINENT CERVIX MILD CORTICAL ATROPHY RIGHT KIDNEY ? REFLUX QUANTIFERON GOLD TB TEST -P CONTINUE IV PRIMAXIN 500MG IV EVERY 8 HOURLY.. 08/31/17 CONTINUE ZITHROMAX iv 500 MG ONCE A DAY DAILY 08/31/17 Status: Acute (2) Abdominal pain Assessment & Plan: MUCH IMPROVED. DENIES FURTHER DIARRHOEA. Status: Acute (3) Cough Assessment & Plan: IMPROVING. ON IV ABX. F/U CULTURES . SPUTUM CULTURE -P Status: Acute (4) History of recurrent UTIs Assessment & Plan: UA -VE URINE CULTURE -VE. URINE FOR AFB - PENDING Status: Acute
[2017-09-02] MEDS: Azithromycin 500mg/250ML NS 500 MG/250 ML BAG IVPB SCH (22:20)
[2017-09-03 08:44] LABS: BASO # 0.1 K/uL (0.0-0.2); BASO % 0.8 % (0.0-2.0); EOS # 0.4 K/uL (0.0-0.7); EOS % 4.6 % (0.0-4.0); HEMOGLOBIN 12.9 g/dL (11.0-16.0); LYMPH # 2.4 K/uL (1.0-4.3); LYMPH % 29.8 % (20.0-40.0); MEAN CELL VOLUME 89.2 fL (81.0-99.0); MEAN CORPUSCULAR HEMOGLOBIN 30.8 pg (27.0-31.0); MEAN CORPUSCULAR HGB CONC 34.5 g/dL (33.0-37.0); MEAN PLATELET VOLUME 9.2 fL (7.2-11.7); MONO # 0.4 K/uL (0.0-0.8); NEUT # 4.9 K/uL (1.8-7.0); NEUT % 59.8 % (50.0-75.0); NRBC % 0.1 % (0.0-2.0); RBC 4.19 Mil/uL (3.80-5.20); RED CELL DISTRIBUTION WIDTH 12.6 % (11.5-14.5); WHITE BLOOD COUNT 8.2 K/uL (4.8-10.8)
[2017-09-03 08:58] LABS: ALB/GLOB RATIO 1.1 (1.0-2.1); ALBUMIN 3.3 g/dL (3.5-5.0); ALT/SGPT 49 U/L (9-52); AST/SGOT 29 U/L (14-36); BLOOD UREA NITROGEN 18 mg/dL (7-17); CALCIUM 8.6 mg/dl (8.6-10.4); GFR AFRICAN-AMERICAN > 60; GFR NON-AFRICAN AMERICAN > 60
--- NOTE | 2017-09-03 15:46 | CP.PCM.PN ---
Subjective - Date & Time of Evaluation Date of Evaluation: 09/03/17 Time of Evaluation: 15:45 - Subjective Subjective: Chart and the blood tests reviewed. Patient's blood pressure is stable Sputum shows gram-negative rods awaiting isolation Hepatitis profile is negative Patient has no further fever in the hospital. Will discuss with ID Objective - Vital Signs/Intake and Output Vital Signs (last 24 hours): Temp Pulse Resp BP Pulse Ox 97.9 F 85 20 118/88 99 09/03/17 15:41 09/03/17 15:41 09/03/17 15:41 09/03/17 15:41 09/03/17 15:41 Intake and Output: 09/03/17 09/03/17 11:59 23:59 Intake Total 340 Balance 340 - Medications Medications: Current Medications Imipenem/Cilastatin Sodium 500 (mg/ Sodium Chloride) 100 mls @ 100 mls/hr IVPB Q8H BUBBA PRN Reason: Protocol Last Admin: 09/03/17 11:00 Dose: 100 mls/hr Azithromycin (Zithromax 500mg In Ns Addvantage) 500 mg in 250 mls @ 167 mls/hr IVPB Q24H BUBBA PRN Reason: Protocol Last Admin: 09/02/17 22:20 Dose: 167 mls/hr Labetalol HCl (Trandate) 100 mg PO BID BUBBA Last Admin: 09/03/17 10:59 Dose: Not Given - Labs Labs: 09/03/17 08:39 09/03/17 08:39 PT 11.4 SECONDS (9.7-12.2) 08/31/17 15:34 INR 1.0 08/31/17 15:34 APTT 33 SECONDS (21-34) 08/31/17 15:34
[2017-09-03 16:26] LABS: TB ANTIGEN MINUS NIL 5.22 IU/mL
--- NOTE | 2017-09-03 18:42 | CP.PCM.PN ---
Subjective - Date & Time of Evaluation Date of Evaluation: 09/03/17 Time of Evaluation: 18:42 - Subjective Subjective: CHIEF COMPLAINTS TODAY : AFEBRILE c/o cough still WITH SOFT STOOLS LOWER ABDOMINAL PAIN IMPROVING RN NOTIFIED OF GENERALIZED RASH WITH ITCHING ? PRIMAXIN ROS. HEENT : N. Resp : +VE cough, no wheezing ,pleuritic CP ,or hemoptysis Cardio : No anginal CP, PND, orthopnea, palpitation GI : LLQ ABD. PAIN, n/v +ve ,diarrhea , no GI bleeding . POWER ENGINEER : No headache, vertigo, focal deficit. Musculoskel : No joint swelling , Derm : No rash Psych : Normal affect. Ext : No swelling ,calf pain PE. Pt. is alert awake in no distress. V.S As noted in the chart Head ,ear nose,throat and eyes : Normal. Neck : Supple with normal carotids. Lungs: FAIR AIR ENTRY Heart : S1 & S2 normal with S4. No murmur. Abd : SOFT, MILD TENDERNESS LLQ +VE ,normal bowel sounds. Neuro : Moves all ext. with no localized deficit. Ext : No edema with intact pulses.Non tender calves Derm : No rashes or decubitus ulcer. LABS/RADIOLOGY: ESR 20, U/A -VE HEPT A,B.C SCREEN -VE Chest x-ray NAD. CT of the CHEST/ ABDOMEN /PELVIS -09/01/17 FULLNESS AND PROMINENCE OF THE CERVIX/ MILD CORTICAL ATROPHY RIGHT KIDNEY ? REFLUX Objective - Vital Signs/Intake and Output Vital Signs (last 24 hours): Temp Pulse Resp BP Pulse Ox 97.9 F 85 20 118/88 99 09/03/17 15:41 09/03/17 15:41 09/03/17 15:41 09/03/17 15:41 09/03/17 15:41 Intake and Output: 09/03/17 09/03/17 06:59 18:59 Intake Total 1190 Balance 1190 - Medications Medications: Current Medications Diphenhydramine HCl (Benadryl) 25 mg PO Q8H PRN PRN Reason: Itching / Pruritus Last Admin: 09/03/17 18:30 Dose: 25 mg Labetalol HCl (Trandate) 100 mg PO BID BUBBA Last Admin: 09/03/17 17:59 Dose: Not Given - Labs Labs: 09/03/17 08:39 09/03/17 08:39 PT 11.4 SECONDS (9.7-12.2) 08/31/17 15:34 INR 1.0 08/31/17 15:34 APTT 33 SECONDS (21-34) 08/31/17 15:34 Assessment and Plan (1) Fever of unknown origin (FUO) Assessment & Plan: QUANTIFERON GOLD TB TEST - P DC IV PRIMAXIN 500MG IV EVERY 8 HOURLY.. 08/31/17 CONTINUE ZITHROMAX iv 500 MG ONCE A DAY DAILY 08/31/17 BENADRYL 25MG PO PRN Q8HRLY. 09/03/17 Status: Acute (2) Abdominal pain Status: Acute (3) Cough Assessment & Plan: IMPROVING. DC IV PRIMAXIN F/U CULTURES . SPUTUM CULTURE -P Status: Acute (4) History of recurrent UTIs Assessment & Plan: UA -VE URINE CULTURE -VE. URINE FOR AFB - PENDING Status: Acute
[2017-09-04 08:15] LABS: BASO % 0.4 % (0.0-2.0); EOS # 0.4 K/uL (0.0-0.7); EOS % 5.5 % (0.0-4.0); HEMOGLOBIN 13.8 g/dL (11.0-16.0); LYMPH # 2.4 K/uL (1.0-4.3); LYMPH % 32.8 % (20.0-40.0); MEAN CELL VOLUME 88.6 fL (81.0-99.0); MEAN CORPUSCULAR HEMOGLOBIN 31.2 pg (27.0-31.0); MEAN CORPUSCULAR HGB CONC 35.2 g/dL (33.0-37.0); MEAN PLATELET VOLUME 9.6 fL (7.2-11.7); MONO # 0.4 K/uL (0.0-0.8); MONO % 5.4 % (0.0-10.0); NEUT # 4.2 K/uL (1.8-7.0); NEUT % 55.9 % (50.0-75.0); NRBC % 0.1 % (0.0-2.0); RBC 4.43 Mil/uL (3.80-5.20); RED CELL DISTRIBUTION WIDTH 12.3 % (11.5-14.5); WHITE BLOOD COUNT 7.5 K/uL (4.8-10.8)
[2017-09-04 08:18] LABS: ALB/GLOB RATIO 1.2 (1.0-2.1); ALBUMIN 3.9 g/dL (3.5-5.0); ALT/SGPT 54 U/L (9-52); AST/SGOT 35 U/L (14-36); BLOOD UREA NITROGEN 15 mg/dL (7-17); CALCIUM 9.1 mg/dl (8.6-10.4); GFR AFRICAN-AMERICAN > 60; GFR NON-AFRICAN AMERICAN > 60
--- NOTE | 2017-09-04 14:48 | CP.PCM.PN ---
Subjective - Date & Time of Evaluation Date of Evaluation: 09/04/17 Time of Evaluation: 14:46 - Subjective Subjective: CHIEF COMPLAINTS TODAY : Patients lower pelvic pain is subsided. ROS. HEENT : N. Resp : No cough, wheezing ,pleuritic CP ,or hemoptysis Cardio : No anginal CP, PND, orthopnea, palpitation GI : No abd.pain, n/v ,diarrhea or GI bleeding . 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 Musculoskel : No joint swelling , Derm : No rash Psych : Normal affect. Ext : No swelling ,calf pain PE. Pt. is alert awake in no distress. V.S As noted in the chart Head ,ear nose,throat and eyes : Normal. Neck : Supple with normal carotids. Lungs: Clear air entry. Heart : S1 & S2 normal with S4. No murmur. Abd : Soft tender with normal bowel sounds. Neuro : Moves all ext. with no localized deficit. Ext : No edema with intact pulses.Non tender calves Derm : No rashes or decubitus ulcer. LABS/RADIOLOGY: sputum shows Pseudomonas. Goal interferon test i ASSESSMENT/PLAN : Currently patient is a bacterial infection in the respiratory tract, Pseudomonas IV antibiotics started. Goal interferon test is positive patient is a previous history of PPD positive and treated with INH. Will discuss with ID for further evaluation for sputum for AFB. Blood pressure is stable. Objective - Vital Signs/Intake and Output Vital Signs (last 24 hours): Temp Pulse Resp BP Pulse Ox 97.7 F 82 20 120/84 100 09/04/17 07:15 09/04/17 07:15 09/04/17 07:15 09/04/17 07:15 09/04/17 07:15 Intake and Output: 09/04/17 09/04/17 11:59 23:59 Intake Total 120 Balance 120 - Medications Medications: Current Medications Diphenhydramine HCl (Benadryl) 25 mg PO Q8H PRN PRN Reason: Itching / Pruritus Last Admin: 09/03/17 18:30 Dose: 25 mg Labetalol HCl (Trandate) 100 mg PO BID [facility] Last Admin: 09/04/17 09:26 Dose: Not Given - Labs Labs: 09/04/17 07:50 09/04/17 07:50 PT 11.4 SECONDS (9.7-12.2) 08/31/17 15:34 INR 1.0 08/31/17 15:34 APTT 33 SECONDS (21-34) 08/31/17 15:34
[2017-09-04] MEDS: Ciprofloxacin 400mg/200ml D5W 400 MG/200 ML BAG IVPB SCH (17:52)
--- NOTE | 2017-09-04 18:04 | CP.PCM.PN ---
Subjective - Date & Time of Evaluation Date of Evaluation: 09/04/17 Time of Evaluation: 18:04 - Subjective Subjective: CHIEF COMPLAINTS TODAY : AFEBRILE c/o dry cough now LOWER ABDOMINAL PAIN IMPROVING GENERALIZED MORBILLIFORM RASH WITH ITCHING ? PRIMAXIN ON BENADRYL PRN . OFF PRIMAXIN SINCE 09/03/17 ROS. HEENT : N. Resp : +VE cough, no wheezing ,pleuritic CP ,or hemoptysis Cardio : No anginal CP, PND, orthopnea, palpitation GI : LLQ ABD. PAIN, n/v +ve ,diarrhea , no GI bleeding . 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 Musculoskel : No joint swelling , Derm : generalized prickly heat-like rash. Psych : Normal affect. Ext : No swelling ,calf pain PE. Pt. is alert awake in no distress. V.S As noted in the chart Head ,ear nose,throat and eyes : Normal. Neck : Supple with normal carotids. Lungs: FAIR AIR ENTRY Heart : S1 & S2 normal with S4. No murmur. Abd : SOFT, MILD TENDERNESS LLQ +VE ,normal bowel sounds. Neuro : Moves all ext. with no localized deficit. Ext : No edema with intact pulses.Non tender calves Derm : GENERALIZED MORBILLIFORM RASH ON FACE , TRUNK AND LOWER EXTREMITIES ? DRUG RASH LABS/RADIOLOGY: sputum culture pseudomonas aeruginosa 09/01/17 s -to Cipro. urine 09/01,09/02 -ve AFB smear. ESR 20, U/A -VE HEPT A,B.C SCREEN -VE Chest x-ray NAD. CT of the CHEST/ ABDOMEN /PELVIS -09/01/17 FULLNESS AND PROMINENCE OF THE CERVIX/ MILD CORTICAL ATROPHY RIGHT KIDNEY ? REFLUX Objective - Vital Signs/Intake and Output Vital Signs (last 24 hours): Temp Pulse Resp BP Pulse Ox 98.3 F 89 20 117/84 100 09/04/17 16:10 09/04/17 16:10 09/04/17 16:10 09/04/17 16:10 09/04/17 16:10 Intake and Output: 09/04/17 09/04/17 06:59 18:59 Intake Total 720 Balance 720 - Medications Medications: Current Medications Acetaminophen (Tylenol 325mg Tab) 650 mg PO Q6 PRN PRN Reason: Pain, Mild (1-3) Last Admin: 09/04/17 15:33 Dose: 650 mg Diphenhydramine HCl (Benadryl) 25 mg PO Q8H PRN PRN Reason: Itching / Pruritus Last Admin: 09/03/17 18:30 Dose: 25 mg Ciprofloxacin (Cipro 400mg/200ml Dsw) 400 mg in 200 mls @ 133 mls/hr IVPB Q12H BUBBA PRN Reason: Protocol Last Admin: 09/04/17 17:52 Dose: 133 mls/hr Labetalol HCl (Trandate) 100 mg PO BID BUBBA Last Admin: 09/04/17 17:24 Dose: Not Given - Labs Labs: 09/04/17 07:50 09/04/17 07:50 PT 11.4 SECONDS (9.7-12.2) 08/31/17 15:34 INR 1.0 08/31/17 15:34 APTT 33 SECONDS (21-34) 08/31/17 15:34 Assessment and Plan (1) Fever of unknown origin (FUO) Assessment & Plan: etiology of fever not clear. Most probably lower respiratory tract infection with Pseudomonas aeruginosa Start IV Cipro 400 mg every 12 hourly 09/04/17. QUANTIFERON GOLD TB TEST - +ve . PATIENT HAS HISTORY OF +VE PPD /BCG AND PREVIOUSLY TREATED WITH INH X 9 MONTHS IN [place]. WILL CONTINUE TO OBSERVE FEVER CURVE, AND FOLLOW-UP XRAY /CT CHEST IN 3 MONTHS. follow-up sputum AFB SMEAR and culture. Follow-up urine for AFB smear and culture x3 days ( morning specimens ) BENADRYL 25MG PO PRN Q8HRLY. 09/03/17 FOR RASH MOST PROBABLY SECONDARY TO PRIMAXIN. Status: Acute (2) Abdominal pain Assessment & Plan: PATIENT'S ABDOMINAL PAIN HAS IMPROVED. DISCUSSED WITH PATIENT,IF PAIN PERSISTS OR PATIENT CONTINUES TO HAVE DIARRHEA OR CHANGE IN BOWEL HABITS WILL CONSIDER GI REFERRAL. Status: Acute (3) Cough Status: Acute (4) History of recurrent UTIs Assessment & Plan: URINE CULTURE IN HOSPITAL WAS NEGATIVE GROWTH.. Status: Acute
[2017-09-05] MEDS: Ciprofloxacin 400mg/200ml D5W 400 MG/200 ML BAG IVPB SCH (05:00)
[2017-09-05 07:42] LABS: BASO % 0.6 % (0.0-2.0); EOS # 0.5 K/uL (0.0-0.7); EOS % 6.5 % (0.0-4.0); HEMOGLOBIN 12.5 g/dL (11.0-16.0); LYMPH # 2.4 K/uL (1.0-4.3); LYMPH % 29.6 % (20.0-40.0); MEAN CELL VOLUME 88.4 fL (81.0-99.0); MEAN CORPUSCULAR HEMOGLOBIN 30.9 pg (27.0-31.0); MEAN PLATELET VOLUME 9.6 fL (7.2-11.7); MONO # 0.6 K/uL (0.0-0.8); MONO % 7.3 % (0.0-10.0); NEUT # 4.6 K/uL (1.8-7.0); RBC 4.04 Mil/uL (3.80-5.20); RED CELL DISTRIBUTION WIDTH 12.4 % (11.5-14.5); WHITE BLOOD COUNT 8.2 K/uL (4.8-10.8)
[2017-09-05 07:57] LABS: ALB/GLOB RATIO 1.2 (1.0-2.1); ALT/SGPT 38 U/L (9-52); AST/SGOT 34 U/L (14-36); BLOOD UREA NITROGEN 14 mg/dL (7-17); CALCIUM 8.7 mg/dl (8.6-10.4); GFR AFRICAN-AMERICAN > 60; GFR NON-AFRICAN AMERICAN > 60
[2017-09-05 08:13] VITALS: RESP 20; TEMP 98.3; O2SAT 99
--- NOTE | 2017-09-05 13:47 | CP.PCM.PN ---
Subjective - Date & Time of Evaluation Date of Evaluation: 09/05/17 Time of Evaluation: 13:47 - Subjective Subjective: CHIEF COMPLAINTS TODAY : AFEBRILE COUGH IMPROVING LOWER ABDOMINAL PAIN IMPROVING GENERALIZED MORBILLIFORM RASH WITH ITCHING VEGETABLE BUNCHER AND FADING AWAY? PRIMAXIN ON BENADRYL PRN . OFF PRIMAXIN SINCE 09/03/17 ROS. HEENT : N. Resp : +VE cough, no wheezing ,pleuritic CP ,or hemoptysis Cardio : No anginal CP, PND, orthopnea, palpitation GI : LLQ ABD. PAIN, n/v +ve ,diarrhea , no GI bleeding . 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 Musculoskel : No joint swelling , Derm : generalized prickly heat-like rash. Psych : Normal affect. Ext : No swelling ,calf pain PE. Pt. is alert awake in no distress. V.S As noted in the chart Head ,ear nose,throat and eyes : Normal. Neck : Supple with normal carotids. Lungs: FAIR AIR ENTRY Heart : S1 & S2 normal with S4. No murmur. Abd : SOFT, MILD TENDERNESS LLQ +VE ,normal bowel sounds. Neuro : Moves all ext. with no localized deficit. Ext : No edema with intact pulses.Non tender calves Derm : GENERALIZED MORBILLIFORM RASH ON FACE , TRUNK AND LOWER EXTREMITIES ? DRUG RASH FADING AWAY. LABS/RADIOLOGY: sputum culture pseudomonas aeruginosa 09/01/17 s -to Cipro. urine 09/01,09/02, 09/03/17 -ve AFB smear.CULTURES PENDING. SPUTUM FOR AFB 09/04/17,X2-P SPUTUM FOR AFB 09/05/17--RECEIVED. QUANTIFERON GOLD TB TEST +VE ESR 20, U/A -VE HEPT A,B.C SCREEN -VE.. HIV -1/2 ANTIBODY NEGATIVE Chest x-ray NAD. CT of the CHEST/ ABDOMEN /PELVIS -09/01/17 FULLNESS AND PROMINENCE OF THE CERVIX/ MILD CORTICAL ATROPHY RIGHT KIDNEY ? REFLUX Objective - Vital Signs/Intake and Output Vital Signs (last 24 hours): Temp Pulse Resp BP Pulse Ox 98.3 F 79 20 105/69 99 09/05/17 07:25 09/05/17 07:25 09/05/17 07:25 09/05/17 07:25 09/05/17 07:25 - Medications Medications: Current Medications Acetaminophen (Tylenol 325mg Tab) 650 mg PO Q6 PRN PRN Reason: Pain, Mild (1-3) Last Admin: 09/04/17 15:33 Dose: 650 mg Diphenhydramine HCl (Benadryl) 25 mg PO Q8H PRN PRN Reason: Itching / Pruritus Last Admin: 09/04/17 22:45 Dose: 25 mg Ciprofloxacin (Cipro 400mg/200ml Dsw) 400 mg in 200 mls @ 133 mls/hr IVPB Q12H BUBBA PRN Reason: Protocol Last Admin: 09/05/17 05:00 Dose: 133 mls/hr Labetalol HCl (Trandate) 100 mg PO BID BUBBA Last Admin: 09/05/17 09:05 Dose: Not Given - Labs Labs: 09/05/17 07:25 09/05/17 07:25 PT 11.4 SECONDS (9.7-12.2) 08/31/17 15:34 INR 1.0 08/31/17 15:34 APTT 33 SECONDS (21-34) 08/31/17 15:34 Assessment and Plan (1) Fever of unknown origin (FUO) Assessment & Plan: Etiology of fever not clear. Most probably lower respiratory tract infection with Pseudomonas aeruginosa. R/O TB ( MTB VS EXTRA-PULMONARY TB-/GI ) Start IV Cipro 400 mg every 12 hourly 09/04/17. X 7DAYS ADD PO BACID I TAB PO HS DAILY. QUANTIFERON GOLD TB TEST - +ve . PATIENT HAS HISTORY OF +VE PPD /BCG AND PREVIOUSLY TREATED WITH INH X 9 MONTHS IN [place]. WILL CONTINUE TO OBSERVE FEVER CURVE, AND FOLLOW-UP XRAY /CT CHEST IN 3 MONTHS. follow-up sputum AFB SMEAR and culture. (COLLECTED ) Follow-up urine for AFB smear and culture x3 days ( morning specimens ). ASKED PATIENT TO CONTINUE TO MONITOR HER TEMPERATURE AND FOLLOW UP NEXT WEEK AT THE OFFICE. Status: Acute (2) Abdominal pain Status: Acute (3) Cough Status: Acute (4) History of recurrent UTIs Assessment & Plan: URINE CULTURES NEGATIVE GROWTH TO DATE. Status: Acute (5) HTN (hypertension) Assessment & Plan: PT ON LABETALOL 100 MG BID DAILY. PATIENT EDUCATED TO TAKE LOW-SALT DIET. Status: Acute
--- NOTE | 2017-09-05 14:08 | CP.PCM.PN ---
Subjective - Date & Time of Evaluation Date of Evaluation: 09/05/17 Time of Evaluation: 14:07 - Subjective Subjective: CHIEF COMPLAINTS TODAY : Patients lower pelvic pain is subsided. ROS. HEENT : N. Resp : No cough, wheezing ,pleuritic CP ,or hemoptysis Cardio : No anginal CP, PND, orthopnea, palpitation GI : No abd.pain, n/v ,diarrhea or GI bleeding . 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 Musculoskel : No joint swelling , Derm : No rash Psych : Normal affect. Ext : No swelling ,calf pain PE. Pt. is alert awake in no distress. V.S As noted in the chart Head ,ear nose,throat and eyes : Normal. Neck : Supple with normal carotids. Lungs: Clear air entry. Heart : S1 & S2 normal with S4. No murmur. Abd : Soft tender with normal bowel sounds. Neuro : Moves all ext. with no localized deficit. Ext : No edema with intact pulses.Non tender calves Derm : No rashes or decubitus ulcer. LABS/RADIOLOGY: sputum shows Pseudomonas. Goal interferon test i ASSESSMENT/PLAN : Will need 3 samples of sputum AFB before patient could be discharged because of the positive gold interferon test. Patient has less cough after IV antibiotics. Blood pressure is stable Objective - Vital Signs/Intake and Output Vital Signs (last 24 hours): Temp Pulse Resp BP Pulse Ox 98.3 F 79 20 105/69 99 09/05/17 07:25 09/05/17 07:25 09/05/17 07:25 09/05/17 07:25 09/05/17 07:25 - Medications Medications: Current Medications Acetaminophen (Tylenol 325mg Tab) 650 mg PO Q6 PRN PRN Reason: Pain, Mild (1-3) Last Admin: 09/04/17 15:33 Dose: 650 mg Diphenhydramine HCl (Benadryl) 25 mg PO Q8H PRN PRN Reason: Itching / Pruritus Last Admin: 09/04/17 22:45 Dose: 25 mg Ciprofloxacin (Cipro 400mg/200ml Dsw) 400 mg in 200 mls @ 133 mls/hr IVPB Q12H BUBBA PRN Reason: Protocol Last Admin: 09/05/17 05:00 Dose: 133 mls/hr Labetalol HCl (Trandate) 100 mg PO BID BUBBA Last Admin: 09/05/17 09:05 Dose: Not Given - Labs Labs: 09/05/17 07:25 09/05/17 07:25 PT 11.4 SECONDS (9.7-12.2) 08/31/17 15:34 INR 1.0 08/31/17 15:34 APTT 33 SECONDS (21-34) 08/31/17 15:34
[2017-09-05 16:37] VITALS: BP 114/89; PULSE 90
--- NOTE | 2017-09-05 16:45 | CP.PCM.PN ---
Subjective - Date & Time of Evaluation Date of Evaluation: 09/05/17 Time of Evaluation: 16:45 Objective - Vital Signs/Intake and Output Vital Signs (last 24 hours): Temp Pulse Resp BP Pulse Ox 98.3 F 90 20 114/89 99 09/05/17 07:25 09/05/17 16:00 09/05/17 16:00 09/05/17 16:00 09/05/17 16:00 - Medications Medications: Current Medications Acetaminophen (Tylenol 325mg Tab) 650 mg PO Q6 PRN PRN Reason: Pain, Mild (1-3) Last Admin: 09/04/17 15:33 Dose: 650 mg Diphenhydramine HCl (Benadryl) 25 mg PO Q8H PRN PRN Reason: Itching / Pruritus Last Admin: 09/04/17 22:45 Dose: 25 mg Ciprofloxacin (Cipro 400mg/200ml Dsw) 400 mg in 200 mls @ 133 mls/hr IVPB Q12H BUBBA PRN Reason: Protocol Last Admin: 09/05/17 05:00 Dose: 133 mls/hr Labetalol HCl (Trandate) 100 mg PO BID BUBBA Last Admin: 09/05/17 09:05 Dose: Not Given - Labs Labs: 09/05/17 07:25 09/05/17 07:25 PT 11.4 SECONDS (9.7-12.2) 08/31/17 15:34 INR 1.0 08/31/17 15:34 APTT 33 SECONDS (21-34) 08/31/17 15:34 Assessment and Plan - Assessment and Plan (Free Text) Assessment: Follow up with Dr. Nagy in one week. Follow up with Dr. Payton in one week. for afb sputum result continue all your home medication new prescription cipro 500 mg by mouth twice a day for 7 days bacid one tab at night daily for 7 days activity as tolerated call dr nagy or go to the emergency room if symptoms return or worsening
[2017-09-05 17:01] LABS: % CD4 (T HELPER CELL) 50 Percent (30-61); % CD8 (SUPPRESSOR T CELL) 25 Percent (12-42); ABSOLUTE CD4 CELLS 1384 Cells/mcL (490-1740); ABSOLUTE CD8 CELLS 691 Cells/mcL (180-1170); ABSOLUTE LYMPHOCYTES 2774 Cells/mcL (850-3900)
== END 2017-09-05 17:02 | disposition home or self-care (01) | DRG 864 ==
LOC: C.ER 14:19 → C.9E 15:09 → C.5S 21:41
PROVIDERS: ADMIT Internal Medicine Cardiovascular Disease; ATTEND Internal Medicine Cardiovascular Disease
DX: R50.9 Fever, unspecified (principal); N73.6 Female pelvic peritoneal adhesions (postinfective); I10 Essential (primary) hypertension; E11.9 Type 2 diabetes mellitus without complications